=== PATIENT | female | born 1960 | race Caucasian/White ===

== ENCOUNTER 2024-12-19 14:31 | Outpatient (CLI) | payer OTHER | END 2024-12-19 14:32 | disposition home or self-care (01) | LOC: CSHCT 14:31 | PROVIDERS: ATTEND Nurse Practitioner Gerontology | DX: Z12.2 Encounter for screening for malignant neoplasm of respiratory organs (principal); Z87.891 Personal history of nicotine dependence; E27.8 Other specified disorders of adrenal gland | CPT/HCPCS: 71271 ==

== ENCOUNTER 2025-02-12 12:54 | Outpatient (CLI) | payer OTHER | END 2025-02-12 12:55 | disposition home or self-care (01) | LOC: CSHMAMMO 12:54 | PROVIDERS: ATTEND Family Medicine | DX: Z12.31 Encounter for screening mammogram for malignant neoplasm of breast (principal) | CPT/HCPCS: 77063; 77067 ==